=== PATIENT | female | born 1980 | race Caucasian/White ===

== ENCOUNTER 2021-11-22 07:56 | Outpatient (CLI) | payer BC, SELFPAY ==
--- NOTE | ~2021-11-22 | MM_ITS ---
EXAMINATION: MM scrn aretha implant BI w linden HISTORY: Screening mammogram TECHNIQUE: Craniocaudal and mediolateral oblique 3-D tomosynthesis images with implant displacement a nd synthetic 2-D images were generated. Craniocaudal and mediolateral oblique views of the breasts wi thout implant displacement were obtained using full field digital mammography. CAD analysis was submi tted and interpreted. COMPARISON: No prior mammogram is available for comparison at this institution. BREAST PARENCHYMAL COMPOSITION: The breasts are heterogeneously dense, which may obscure small masses . FINDINGS: There is no evidence of suspicious mass, calcification, or architectural distortion to sugg est malignancy in either breast. There has been no suspicious interval change. IMPRESSION: 1. No mammographic evidence of malignancy. 2. Recommend routine screening mammography in one year. BI-RADS Category 1: Negative Reviewed, dictated and finalized at location A. ARE DIRECTOR
== END 2021-11-22 07:57 | disposition home or self-care (01) ==
LOC: ANHIMG 07:58
PROVIDERS: PCP Internal Medicine; Visit Provider Student in an Organized Health Care Education/Training Program
DX: Z12.31 Encounter for screening mammogram for malignant neoplasm of breast (principal)
CPT/HCPCS: 77063; 77067

== ENCOUNTER 2025-06-10 14:13 | Outpatient (CLI) | payer OTHER, SELFPAY ==
--- NOTE | ~2025-06-10 | MM_ITS ---
EXAMINATION: MM scrn aretha implant BI w linden HISTORY: Screening mammogram TECHNIQUE: Craniocaudal and mediolateral oblique 3-D tomosynthesis images with implant displacement a nd synthetic 2-D images were generated. Craniocaudal and mediolateral oblique views of the breasts wi thout implant displacement were obtained using full field digital mammography. CAD analysis was submi tted and interpreted. COMPARISON: 11/22/2021 BREAST PARENCHYMAL COMPOSITION: Dense: The breasts are heterogeneously dense, which may obscure small masses FINDINGS: There is a new mass in the lower outer quadrant of the left breast. The right breast is sta ble without evidence for malignancy. IMPRESSION: 1. New left breast mass, lower outer quadrant. 2. Additional mammographic views and possible breast ultrasound are recommended. BI-RADS Category 0: Incomplete: Needs additional imaging evaluation. Reviewed, dictated and finalized at location B. IMPRESSION: 1. New left breast mass, lower outer quadrant. 2. Additional mammographic views and possible breast ultrasound are recommended . BI-RADS Category 0: Incomplete: Needs additional imaging evaluation.
--- OUTSIDE RECORDS SUMMARY | 2025-06-10 14:30 | XMS_ITS | Continuity of Care Document ---
Author Organization [facility] Address [address] [place] [address] Phone Care Team Providers Care Bulk Picker Name Role Phone Mcknight OD, Jase Unavailable Unavailable Advance Directives Directive Yes / No Effective Date File Name No Information Encounters Encounter Description Practice Location Reason(s) For Visit Diagnoses Date Provider Providers Copied on Encounter [facility], [address], [place], [place], [id number], [place] tel:[phone] [address] [facility] [place] No Information 1-200 5 Mcknight OD Jase. [address] [place] , [address], [place], [address], [place]. tel:[phone] Family History Family Member Type Diagnosis Age At Onset No Information Payers Payer name Insurance type Covered republican ID Authoriza tion(s) No Information Social History Type Description Quantity Date Captured Comments Sex Female Smoking Status No Information Chief Complaint And Reason For Visit No Information Reason For Referral Reason For Referral No Information History Of Present Illness Encounter Date Complaint History Of Prese nt Illness No Information Functional Status Date Functional Assessmen t No Information Instructions Date Instruction Additional Infor mation No Information Assessments Type Assessment Date No Information Patient Care Teams Name Effective Dates (start - stop) Status Members No Information
--- OUTSIDE RECORDS SUMMARY | 2025-06-10 14:30 | XMS_ITS | Clinical Summary ---
Author Organization [facility] [employer] Address [address] [place] [address] Care Team Providers Care Financial Reporting Director Name Role Phone Sotero Marks MD Primary Care Provider [phone] Source Comments [facility] [employer],non-owned Affiliates and Associated Physician Practices is amultiple site organization consisting of ambulatory clinics and hospital sitesin [place], [place]. This disclosure is being madepursuant to the Care Everywhere program and may not contain all information available regarding this patient. Last updated 18.[facility] [employer] Allergies No known active allergies Medications * Be aware that medications may not be up to date on this document. Alwaysverify current medications with the patient. spironolactone (ALDACTONE) 100 MG tablet Take 100 mg by mouth once daily Active omeprazole (PRILOSEC) 40 MG capsule Take 40 mg by mouth daily before breakfast Active vitamin E (TOCOPHERYL) 100 UNIT capsule Take by mouth once daily Active fluticasone propionate (FLONASE) 50 MCG/ACT nasal spray [place] 2 sprays into each nostril once daily 16 g 0 Active Social History Tobacco Use Types Packs/Day Years Used Date Smoking Tobacco: Never Smokeless Tobacco: Never Comments No Sex and Gender Information Value Date Recorded Sex Assigned at Not on file Legal Sex Female 4:07 AM [employer] Gender Identity Not on file Sexual Orientation Not on file Last Filed Vital Signs Vital Sign Reading Time Taken Comments Blood Pressure 108/70 06/23/2020 9:04 AM CDT Pulse 89 06/23/2020 9:04 AM CDT Temperature 37.1 C (98.7 F) 06/23/2020 9:04 AM CDT Respiratory Rate 18 06/23/2020 9:04 AM CDT Oxygen Saturation 98% 06/23/2020 9:04 AM CDT Inhaled Oxygen Concentration - - Weight 59 kg (130 lb) 06/23/2020 9:04 AM CDT Height 170.2 cm (5' 7) 06/23/2020 9:04 AM CDT Body Mass Index 20.36 06/23/2020 9:04 AM CDT Plan of Treatment Health Maintenance Due Date Last Done Comments LIPID TESTING 1980 MAMMOGRAM 1980 HIV SCREENING 1995 HEPATITIS C SCREENING 11/25/1998 DTAP/TDAP/TD VACCINES (1 - Tdap) 1999 HEPATITIS B VACCINE (1 of 3 - 19+ 3-dose series) 1999 HPV VACCINE (1 - 3-dose SCDM series) 2007 COVID-19 VACCINE ( - 2023-2 5 season) 2024 DEPRESSION SCREENING 11/25/2024 INFLUENZA VACCINE (#1) 2025 08/12/2018 ZOSTER VACCINE (1 of 2) 2030 HIB VACCINE Aged Out No longer eligi ble based on patient's age to complete this topic MENINGOCOCCAL (Group B) VACC INE SHARED DECISION-MAKING Aged Out No longer eligibl e based on patient's age to complete this topic MENINGOCOCCAL GROUPS A/C/Y/W VACCINE Aged Out No longer eligible b ased on patient's age to complete this topic PNEUMOCOCCAL VACCINE Aged Out No long er eligible based on patient's age to complete this topic Insurance [facility] Care Teams Financial Reporting Director Relationship Specialty Start Date End Date Sotero Marks MD PCP - General Internal Medicine 11/15/16
--- OUTSIDE RECORDS SUMMARY | 2025-06-10 14:30 | XMS_ITS | Data Portability ---
Author Organization [facility] [employer], Main Office Address [address] [place] [address] Assessment Encounter Date Assessment Date Assessment LastModified by Organization Details LastModified Time 03/20/2023 03/20/2023 Will try some Ketoralac 10 mg b.i.d. p.r.n. for pain tretoin 0.05% PPI for GERD can tolerate H2 lela Follow-up 6 months Had blood work done recently she will get us copies Not available 03/20/2023 10:43:30 06/21/2023 06/21/2023 She has acute on chronic back pain MRI lumbar spine she is using some Ketoralac sparingly tizanidine 4 mg b.i.d. p.r.n. set up with physical therapy see me after PT done [id number] Not available 06/21/2023 21:22:05 Plan of Treatment Reminders Order Date Submit Date Provider Last Modified By Organization Details Last Modified Time Details Appointments None recorded. Lab None recorded. Referral None recorded. Procedures None recorded. Surgeries None recorded. Imaging MRI, lumbar spine, w/o contrast 2022 023 [facility] ([facility]), [address] [place], [address], 4 11:09:59 Medication Orders tizanidine 4 mg tablet 2022 023 [email or web address] [facility] #[id number], [address] [facility], [place], [place], [id number], 3 14:25:48 tretinoin 0.05 % topical cream 2022 023 [facility] #[id number], [address], [place], [place], [id number], 11:19:38 Patient TargetsNo targets recorded. Patient InstructionsNo instructions recorded. Reason for Referral None Reported. Results Created Date Observation Date Name Description Value Unit Range Abnormal Flag Note LastModifiedBy Organization Detail LastModifiedTime 02/24/20 22 02/23/2022 LIPID PANEL cholesterol 182 mg/dL 140-19 9 [facility] F NSUS RECOM MENDA TION FOR MICHELLE STERO L: ADULT CHILD LOW RISK: <200 <170 BORDE RLINE : <200- 239 ----- HIGH RISK: >240 >200 Not Available [facility] (Lab) [address] [place], [address], 02/23/2022 17:26:54 02/24/20 22 02/23/2022 LIPID PANEL triglyceride s 103 mg/dL 0-150 [facility] LUIS F NSUS REPOR T RECOM MENDA TION FOR TRIGL YCERI MURIEL: ADULT CHILD LOW RISK: <150 ----- BODER LINE: 150-1 99 ----- HIGH RISK: >200 ----- Not Available [facility] (Lab) [address] [place], [address], 02/23/2022 17:26:54 02/24/20 22 02/23/2022 LIPID PANEL HDL cholesterol 47 mg/dL 40- Not Available [facility] (Lab) [address] [place], [address], 02/23/2022 17:26:54 02/24/20 22 02/23/2022 LIPID PANEL LDL cholesterol, calculated 114 mg/dL 0-130 NIH LUIS F NSUS REPOR T RECOM MENDA TIONS FOR LDL: ADULT CHILD LOW RISK <130 <110 (OPTI MAL LDL) <100 ----- BORDE RLINE : 130-1 59 ----- HIGH RISK: >160 >130 A TRIGL YCERI DE RESUL T >400 INVAL IDATE S THE CALCU LATIO N FOR LDL FRACT IONAT ION - THE LDL RESUL T WILL NOT BE REPOR MJ. Not Available [facility] (Lab) [address] [place], [address], 02/23/2022 17:26:54 02/24/20 22 02/23/2022 COMPR EHENS ISI METAB OLIC PANEL sodium 138 mmol/ L 137-14 5 Not Available [facility] (Lab) [address] [place], [address], 02/23/2022 17:26:48 02/24/20 22 02/23/2022 COMPR EHENS ISI METAB OLIC PANEL potassium 4.4 mmol/ L 3.5-5. 1 Not Available [facility] (Lab) [address] [place], [address], 02/23/2022 17:26:48 02/24/20 22 02/23/2022 COMPR EHENS ISI METAB OLIC PANEL chloride 103 mmol/ L 98-107 Not Available [facility] (Lab) [address] [place], [address], 02/23/2022 17:26:48 02/24/20 22 02/23/2022 COMPR EHENS ISI METAB OLIC PANEL carbon dioxide 27 mmol/ L 22-30 Not Available [facility] (Lab) [address] [place], [address], 02/23/2022 17:26:48 02/24/20 22 02/23/2022 COMPR EHENS ISI METAB OLIC PANEL agap 12.4 mmol/ L 14-22 low Not Available [facility] (Lab) [address] [place], [address], 02/23/2022 17:26:48 02/24/20 22 02/23/2022 COMPR EHENS ISI METAB OLIC PANEL glucose 86 mg/dL 70-99 Not Available [facility] (Lab) [address] [place], [address], 02/23/2022 17:26:48 02/24/20 22 02/23/2022 COMPR EHENS ISI METAB OLIC PANEL BUN 13 mg/dL 8-19 Not Available [facility] (Lab) [address] [place], [address], 02/23/2022 17:26:48 02/24/20 22 02/23/2022 COMPR EHENS ISI METAB OLIC PANEL creatinine 0.77 mg/dL 0.66-1 .25 Not Available [facility] (Lab) [address] [facility], [place], [address], 02/23/2022 17:26:48 02/24/20 22 02/23/2022 COMPR EHENS ISI METAB OLIC PANEL GFR >60 Refer ence Range : [place] [facility] GFR Healt hy Adult : >60 mL/mi n/1.7 3 m2 Chron ic Kidne y Disea se: 15-60 mL/mi n/1.7 3 m2 Kidne y Failu re: <15/m L/min /1.73 m2 www.n iddk. nih.g ov The MDRD study equat ion has not been valid ated in child ney <18 years of age; pregn ant women ; the elder ly >85 years of age; or in some racia l or ethni c subgr oups, such as [facility] nics. Outsi de the valid ated kayla eters , estim ated GFR is less accur ate, requi ring clini brian judgm ent on a case- by-ca se basis . Clini brian inter preta tion for other races and ages must be made by the clini carter. The MDRD study equat ion has not been valid ated for the evalu ation of serum creat inine relat ed to nutri liliana l statu s or medic ation usage . For perso ns <18 years of age, a pedia tric GFR calcu lator is avail able on the [facility] websi te: https ://sharifa patrick.o rg/pr ofess ional s/kdo qi/gf r_cal culat or Not Available [facility] (Lab) [address] [place], [address], 02/23/2022 17:26:48 02/24/20 22 02/23/2022 COMPR EHENS ISI METAB OLIC PANEL alkaline phosphatase 50 U/L 38-126 Not Available [facility] (Lab) [address] [facility] [place], [address], 02/23/2022 17:26:48 02/24/20 22 02/23/2022 COMPR EHENS ISI METAB OLIC PANEL alanine aminotransfe rase 41 U/L 0-35 high Not Available [facility] (Lab) [address] [place], [address], 02/23/2022 17:26:48 02/24/20 22 02/23/2022 COMPR EHENS ISI METAB OLIC PANEL aspartate aminotransfe rase 127 U/L 15-37 high Not Available [facility] (Lab) [address] [place], [address], 02/23/2022 17:26:48 02/24/20 22 02/23/2022 COMPR EHENS ISI METAB OLIC PANEL bilirubin, total 0.60 mg/dL 0.20-1 .30 Not Available [facility] (Lab) [address] [place], [address], 02/23/2022 17:26:48 02/24/20 22 02/23/2022 COMPR EHENS ISI METAB OLIC PANEL calcium 9.3 mg/dL 8.4-10 .2 Not Available [facility] (Lab) [address] [place], [address], 02/23/2022 17:26:48 02/24/20 22 02/23/2022 COMPR EHENS ISI METAB OLIC PANEL total protein 7.2 g/dL 6.3-8. 2 Not Available [facility] (Lab) [address] [place], [address], 02/23/2022 17:26:48 02/24/20 22 02/23/2022 COMPR EHENS ISI METAB OLIC PANEL albumin 4.3 g/dL 3.4-5. 0 Not Available [facility] (Lab) [address] [place], [address], 02/23/2022 17:26:48 02/24/20 22 02/23/2022 COMPR EHENS ISI METAB OLIC PANEL globulin 2.9 g/dL 2.6-4. 2 Not Available [facility] (Lab) [address] [place], [address], 02/23/2022 17:26:48 02/24/20 22 02/23/2022 COMPR EHENS ISI METAB OLIC PANEL A/G ratio 1.5 ratio 1.0-2. 0 Not Available [facility] (Lab) [address] [place], [address], 02/23/2022 17:26:48 02/24/20 22 02/23/2022 CORTI TIA, TOTAL ab 10.8 ug/dL CORTI TIA RESUL T COMME NT: Refer ence Range : Befor e 10 a.m. Speci men: 4.5-2 2.7 Refer ence Range : After 5 p.m. Speci men: 1.7-[address] ease inter pret above resul ts accor dingl y Not Available [facility] (Lab) [address] [place], [address], 02/23/2022 14:59:42 02/24/20 22 02/23/2022 TSH thyroid-stim ulating hormone 1.910 uIU/m L 0.465- 4.680 Not Available [facility] (Lab) [address] [place], [address], 02/23/2022 14:59:37 02/24/20 22 02/23/2022 T4 FREE free T4 1.17 NG/dL 0.78-2 .19 Not Available [facility] (Lab) [address] [facility] [place], [address], 02/23/2022 14:55:21 02/24/20 22 02/23/2022 T3 FREE free T3 3.7 pg/mL 2.77-5 .27 Not Available [facility] (Lab) [address] [place], [address], 02/23/2022 14:55:20 02/24/20 22 02/23/2022 CBC/C OMPLE TE BLD COUNT W/DIF F white blood cells 5.4 x10'3 /uL 4.2-10 .8 Not Available [facility] (Lab) [address] [place], [address], 02/23/2022 13:19:29 02/24/20 22 02/23/2022 CBC/C OMPLE TE BLD COUNT W/DIF F red blood cells 4.81 x10'6 /uL 3.80-5 .20 Not Available [facility] (Lab) [address] [place], [address], 02/23/2022 13:19:29 02/24/20 22 02/23/2022 CBC/C OMPLE TE BLD COUNT W/DIF F hemoglobin 14.3 g/dL 12.0-1 5.6 Not Available [facility] (Lab) [address] [place], [address], 02/23/2022 13:19:29 02/24/20 22 02/23/2022 CBC/C OMPLE TE BLD COUNT W/DIF F hematocrit 44.2 % 35.7-4 5.7 Not Available [facility] (Lab) [address] [place], [address], 02/23/2022 13:19:29 02/24/20 22 02/23/2022 CBC/C OMPLE TE BLD COUNT W/DIF F mean red cell volume 91.9 fL 82.0-9 9.0 Not Available [facility] (Lab) [address] [facility] [place], [address], 02/23/2022 13:19:29 02/24/20 22 02/23/2022 CBC/C OMPLE TE BLD COUNT W/DIF F mean red cell hemoglobin 29.7 pg 27.0-3 3.0 Not Available [facility] (Lab) [address] [place], [address], 02/23/2022 13:19:29 02/24/20 22 02/23/2022 CBC/C OMPLE TE BLD COUNT W/DIF F mean RBC HGB concentratio n 32.4 g/dL 31.0-3 6.0 Not Available [facility] (Lab) [address] [place], [address], 02/23/2022 13:19:29 02/24/20 22 02/23/2022 CBC/C OMPLE TE BLD COUNT W/DIF F red cell distribution width 13.6 % 11.8-1 5.5 Not Available [facility] (Lab) [address] [place], [address], 02/23/2022 13:19:29 02/24/20 22 02/23/2022 CBC/C OMPLE TE BLD COUNT W/DIF F platelets 257 x10'3 /uL 150-40 0 Not Available [facility] (Lab) [address] [place], [address], 02/23/2022 13:19:29 02/24/20 22 02/23/2022 CBC/C OMPLE TE BLD COUNT W/DIF F mean platelet volume 10.5 fL 9.0-12 .4 Not Available [facility] (Lab) [address] [place], [address], 02/23/2022 13:19:29 02/24/20 22 02/23/2022 CBC/C OMPLE TE BLD COUNT W/DIF F neutrophils 61.1 % 39.0-7 2.0 Not Available [facility] (Lab) [address] [place], [address], 02/23/2022 13:19:29 02/24/20 22 02/23/2022 CBC/C OMPLE TE BLD COUNT W/DIF F lymphocytes 29.7 % 16.0-4 7.0 Not Available [facility] (Lab) [address] [place], [address], 02/23/2022 13:19:29 02/24/20 22 02/23/2022 CBC/C OMPLE TE BLD COUNT W/DIF F monocytes 6.9 % 5.0-12 .0 Not Available [facility] (Lab) [address] [place], [address], 02/23/2022 13:19:29 02/24/20 22 02/23/2022 CBC/C OMPLE TE BLD COUNT W/DIF F eosinophils 1.5 % 1.0-7. 0 Not Available [facility] (Lab) [address] [place], [address], 02/23/2022 13:19:29 02/24/20 22 02/23/2022 CBC/C OMPLE TE BLD COUNT W/DIF F basophils 0.6 % 0.0-2. 0 Not Available [facility] (Lab) [address] [place], [address], 02/23/2022 13:19:29 02/24/2002/23/2022 CBC/C OMPLE TE BLD COUNT W/DIF F immature granulocytes 0.2 % 0.00-0 .50 Not Available [facility] (Lab) [address] [place], [address], 02/23/2022 13:19:29 02/24/20 22 02/23/2022 CBC/C OMPLE TE BLD COUNT W/DIF F neutrophils, absolute count 3.28 x10'3 /uL 1.5-8. 0 Not Available [facility] (Lab) [address] [place], [address], 02/23/2022 13:19:29 02/24/20 22 02/23/2022 CBC/C OMPLE TE BLD COUNT W/DIF F lymphocytes, absolute count 1.59 x10'3 /uL 1.07-3 .43 Not Available [facility] (Lab) [address] [place], [address], 02/23/2022 13:19:29 02/24/20 22 02/23/2022 CBC/C OMPLE TE BLD COUNT W/DIF F monocytes, absolute count 0.37 x10'3 /uL 0.29-0 .99 Not Available [facility] (Lab) [address] [place], [address], 02/23/2022 13:19:29 02/24/20 22 02/23/2022 CBC/C OMPLE TE BLD COUNT W/DIF F eosinophils, absolute count 0.08 x10'3 /uL 0.02-0 .53 Not Available [facility] (Lab) [address] [place], [address], 02/23/2022 13:19:29 02/24/20 22 02/23/2022 CBC/C OMPLE TE BLD COUNT W/DIF F basophils, absolute count 0.03 x10'3 /uL 0.01-0 .08 Not Available [facility] (Lab) [address] [facility] [place], [address], 02/23/2022 13:19:29 02/24/20 22 02/23/2022 CBC/C OMPLE TE BLD COUNT W/DIF F immature granulocytes ,absolute 0.01 x10'3 /uL 0.00-0 .05 Not Available [facility] (Lab) [address] [place], [address], 02/23/2022 13:19:29 02/24/20 22 02/23/2022 CBC/C OMPLE TE BLD COUNT W/DIF F nucleated red blood cells 0.0 % -0 Not Available [facility] (Lab) [address] [place], [address], 02/23/2022 13:19:29 02/24/20 22 02/23/2022 CBC/C OMPLE TE BLD COUNT W/DIF F NRBC# 0.00 x10'3 /uL Not Available [facility] (Lab) [address] [place], [address], 02/23/2022 13:19:29 11/22/20 21 11/22/2021 MAMMO , scree tyson, digit al, bilat eral No observ ation record ed. [id number] [facility] (Imaging) [address] [place] [address] [address], [place], [address], 01/23/2023 05:01:07 Result Notes None recorded. Problems Name Problem SNOMED Code Status Onset Date Resolution Date Notes Provider Name and Address Organization Details Recorded Time Has a sore throat 270052635 Active Not Available [facility] 3 04:49:28 Pain in thoracic spine 948617729 Active Not Available [facility] 3 04:49:28 Malaise and fatigue 165536924 Active Not Available [facility] 3 04:49:28 Premenstrual tension syndrome 03441216 Active Not Available [facility] 3 04:49:29 Gastroesophag eal reflux disease 578854356 Active 2018 Not Available [facility] 3 04:49:28 Headache 92739223 Active 2020 Not Available [facility] 3 04:49:28 Arthritis 6941629 Active 2020 Not Available [facility] 3 04:49:28 Onychomycosis of toenails 703654382 Active 2020 Not Available [facility] 3 04:49:28 Fatigue 29333651 Active 2021 Not Available [facility] 3 04:49:29 Dysuria 36254272 Active 2021 Not Available [facility] 3 04:49:28 Chronic dermatitis 23260200 Active 2021 Not Available [facility] 3 04:49:28 Acute urinary tract infection 197058477 Active 2021 Not Available [facility] 3 04:49:28 Upper respiratory infection 97364339 Active 2022 Not Available [facility] 3 04:49:29 Acne 93033701 Active 2022 NICOLA Hui, [facility] 3 10:30:38 Low back pain 671965088 Active 2022 NICOLA Hui, [facility] 3 10:34:35 Problem Notes None recorded. Procedures Surgical History Date Name Laterality Status Provider Name and Address Organization Details Recorded Time [place] [facility] completed Not Available [facility] 01/23/2023 04:41:57 augmentation mammoplasty completed Not Available [facility] 01/23/2023 04:41:57 Imaging Results None recorded. Procedure Notes None recorded. Medical Equipment None Reported. Allergies No known drug allergies Medications Name Sig Start Date Stop Date Status Note LastModified by Organization Details LastModified Time amoxicillin 500 mg capsule Take 1 capsule every 8 hours by oral route for 7 days. active Not Available Not Available No t Available prednisone 10 mg tablet 08/17 completed Not Available Not Available Not Available clindamycin HCl 300 mg capsule Take 1 capsule 3 times a day by oral route for 10 days. active Not Available Not Available No t Available azithromyci n 250 mg tablet TAKE 2 TABLETS BY MOUTH FOR 1 DAY THEN TAKE 1 TABLET BY MOUTH DAILY FOR 4 DAYS 03/20 completed Not Available Not Available Not Available tizanidine 4 mg tablet TAKE 1 TABLET BY MOUTH EVERY NIGHT AT BEDTIME NEEDED FOR BACK SPASMS active Not Available Not Available No t Available fluconazole 150 mg tablet 03/14 completed Not Available Not Available Not Available hydrocodone 5 mg-acetamin ophen 325 mg tablet 01/27 completed Not Available Not Available Not Available tretinoin 0.025 % topical cream APPLY TOPICALLY TO THE AFFECTED AREA EVERY DAY AT BEDTIME 06/21 completed Not Available Not Available Not Available minocycline 100 mg capsule 11/09 completed Not Available Not Available Not Available meloxicam 15 mg tablet active Not Available Not Available Not Available metronidazo le 0.75 % (37.5 mg/5 gram) vaginal gel INSERT 1 APPLICATO RFUL VAGINALLY EVERY DAY AT BEDTIME FOR 5 DAYS 03/20 completed Not Available Not Available Not Available spironolact one 100 mg tablet TAKE 1 TABLET BY MOUTH EVERY DAY 2023 active Not Available Not Available Not Avai lable clindamycin HCl 150 mg capsule 01/27 completed Not Available Not Available Not Available penicillin V potassium 500 mg tablet 01/27 completed Not Available Not Available Not Available metronidazo le 500 mg tablet TAKE 1 TABLET BY MOUTH EVERY 12 HOURS 03/14 completed Not Available Not Available Not Available sulfacetami de sodium (acne) 10 % lotion (suspension ) 11/09 completed Not Available Not Available Not Available ciprofloxac in 250 mg tablet Take 1 tablet twice a day by oral route for 7 days. 01/27 completed Not Available Not Available Not Available tretinoin 0.05 % topical cream APPLY TOPICALLY TO THE AFFECTED AREA EVERY DAY AT BEDTIME active Not Available Not Available No t Available sulfamethox azole 800 mg-trimetho prim 160 mg tablet 11/09 completed Not Available Not Available Not Available omeprazole 40 mg capsule,del ayed release TAKE 1 CAPSULE BY MOUTH EVERY DAY 2023 active Not Available Not Available Not Avai lable ketorolac 10 mg tablet TAKE 1 TABLET BY MOUTH TWICE DAILY NEEDED active Not Available Not Available No t Available amoxicillin 875 mg tablet 11/09 completed Not Available Not Available Not Available Zoloft 50 mg tablet Take 1 tablet every day by oral route as directed for 30 days. 01/24 completed Not Available Not Available Not Available cephalexin 500 mg capsule 01/27 completed Not Available Not Available Not Available cyanocobala min (vit B-12) 1,000 mcg/mL injection solution Inject 1 mL every month by intramusc ular route. 06/08 completed Not Available Not Available Not Available clotrimazol e-betametha sone 1 %-0.05 % topical cream 01/27 completed Not Available Not Available Not Available omeprazole 20 mg capsule,del ayed release Take 1 capsule every day by oral route. 05/19 completed Not Available Not Available Not Available ibuprofen 600 mg tablet 01/27 completed Not Available Not Available Not Available ketoconazol e 2 % topical cream active Not Available Not Available Not Available fluticasone propionate 50 mcg/actuati on nasal spray,suspe nsion SHAKE LQ AND U 2 SPRAYS IEN QD 08/17 completed Not Available Not Available Not Available omeprazole ER 40 mg capsule,ext ended release Take by oral route. 08/17 completed Not Available Not Available Not Available progesteron e micronized 100 mg capsule TAKE 1 CAPSULE BY MOUTH AT BEDTIME 06/21 completed Not Available Not Available Not Available amoxicillin 875 mg-potassiu m clavulanate 125 mg tablet TK 1 T PO BID WITH THE MORNING AND SANDOVAL MEAL FOR 7 DAYS 11/09 completed Not Available Not Available Not Available amoxicillin 500 mg-potassiu m clavulanate 125 mg tablet 01/27 completed Not Available Not Available Not Available hydroxyzine pamoate 25 mg capsule 01/27 completed Not Available Not Available Not Available clindamycin 1 % lotion 01/27 completed Not Available Not Available Not Available Wellbutrin XL 150 mg 24 hr tablet, extended release Take 1 tablet every day by oral route. 11/09 completed Not Available Not Available Not Available nitrofurant oin monohydrate /macrocryst als 100 mg capsule TAKE 1 CAPSULE BY MOUTH EVERY 12 HOURS FOR 7 DAYS 09/17 completed Not Available Not Available Not Available melatonin active Not Available Not Suri ilable Not Available Vitamin D 08/17 completed Not Available Not Available Not Available multivitami n 2021 active Not Available Not Available Not Avai lable Aczone 5 % topical gel 11/09 completed Not Available Not Available Not Available vitamin E (dl, acetate) 180 mg (400 unit) capsule Take by oral route. 08/17 completed Not Available Not Available Not Available Vitamin D3 50 mcg (2,000 unit) capsule Take by oral route. 08/17 completed Not Available Not Available Not Available Estarylla 0.25 mg-0.035 mg tablet 04/15 completed Not Available Not Available Not Available Addyi 100 mg tablet TAKE 1 TABLET BY MOUTH EVERY NIGHT AT BEDTIME 03/14 completed Not Available Not Available Not Available Aczone 7.5 % topical gel with pump 11/09 completed Not Available Not Available Not Available tretinoin 0.025 %-hyalurona te sodium 0.5 %-niacinami de 4 % top cream apply to dermatiti s daily 09/17 completed Not Available Not Available Not Available Vitals Date Recorded Body mass index (BMI) Body height Heart rate Body temperature Body weight Systolic And Diastolic Provider Name and Address Organization Details Last Updated DateTime 2 20.8 kg/m2 170.18 cm 84 /min 97.9 [degF] 74006.7 9 g 122/70 mm[Hg] Not Available [facility] 3 04:45:13 Date Recorded Body height Body mass index (BMI) Body weight Body temperature Heart rate Systolic And Diastolic Provider Name and Address Organization Details Last Updated DateTime 3 170.18 cm 22.2 kg/m2 36891.1 2 g 97.8 [degF] 82 /min 120/84 mm[Hg] NICOLA Lucas [facility] [employer] [place] [facility] 3 09:59:27 Date Recorded Body height Body mass index (BMI) Body weight Body temperature Heart rate Systolic And Diastolic Provider Name and Address Organization Details Last Updated DateTime 3 170.18 cm 21.9 kg/m2 47027.9 3 g 97.7 [degF] 68 /min 110/72 mm[Hg] NICOLA Lucas [facility] [employer] [facility] 3 14:05:32 Date Recorded Body mass index (BMI) Body height Heart rate Body temperature Body weight Systolic And Diastolic Provider Name and Address Organization Details Last Updated DateTime 1 20.5 kg/m2 170.18 cm 72 /min 98.8 [degF] 34220.6 g 130/70 mm[Hg] Not Available [facility] 3 04:45:13 Date Recorded Body mass index (BMI) Body height Heart rate Body temperature Body weight Systolic And Diastolic Provider Name and Address Organization Details Last Updated DateTime 2 21.5 kg/m2 170.18 cm 79 /min 98.6 [degF] 87724.1 5 g 120/76 mm[Hg] Not Available [facility] 3 04:45:13 Social History Question Answer Notes LastModified by Organizat ion Details LastModified Time Tobacco Smoking Status Never Smoker Not Available [facility] 01/23/2023 04:20:12 Do You Have An Advance Directive? No [id number] Information not available 01/23/2023 What Is Your Level Of Caffeine Consumption? Occasional [id number] Information not available 01/23/2023 How Much Tobacco Do You Chew? None [id number] Information not available 01/23/2023 In The 14 Days Before Symptom Onset, Have You Had Close Contact With A Laboratory-confi rmed COVID-19 While That Case Was Ill? No [id number] Information not available 01/23/2023 In The 14 Days Before Symptom Onset, Have You Had Close Contact With A Person Who Is Under Investigation For COVID-19 While That Person Was Ill? No [id number] Information not available 01/23/2023 What Type Of Diet Are You Following? REGULAR [id number] Information not available 01/23/2023 Which Illicit Or Recreational Drugs Have You Used? None [id number] Information not available 01/23/2023 What Is The Highest Grade Or Level Of School You Have Completed Or The Highest Degree You Have Received? [id number] Information not available 01/23/2023 Have There Been Any Changes To Your Family Or Social Situation? No [id number] Information not available 01/23/2023 What Is The Fluoride Status Of Your Home? Unknown [id number] Information not available 01/23/2023 Are There Any Guns Present In Your Home? Yes MIGRATION.[id number] Information not available 01/23/2023 Do You Use Insect Repellent Routinely? No MIGRATION.42441 76713 Information not available 01/23/2023 Where Do You Live? [place] MIGRATION.79403 76009 Information not available 01/23/2023 Do You Have A Medical Power Of Helmet Hat Brim Cutter? No MIGRATION.10872 00250 Information not available 01/23/2023 What Was The Date Of Your Most Recent Tobacco Screening? 06/21/2023 [email or web address] Information not available 06/21/2023 Have You Ever Been Counseled For Unhealthy Alcohol Use? No MIGRATION.75837 27550 Information not available 01/23/2023 Do You Have Any Pets? Yes MIGRATION.70073 88225 Information not available 01/23/2023 What Is Your Relationship Status? MIGRATION.19520 47304 Information not available 01/23/2023 Do You Use Your Seat Belt Or Car Seat Routinely? Yes MIGRATION.64049 51262 Information not available 01/23/2023 Do You Have Smoke And Carbon Monoxide Detectors In Your Home? Yes MIGRATION.21357 42815 Information not available 01/23/2023 Are You Passively Exposed To Smoke? No MIGRATION.23946 56803 Information not available 01/23/2023 Are There Any Smokers In Your House? No MIGRATION.33242 22868 Information not available 01/23/2023 How Much Tobacco Do You Smoke? No MIGRATION.51406 66105 Information not available 01/23/2023 What Types Of Sporting Activities Do You Participate In? None MIGRATION.01227 84145 Information not available 01/23/2023 Do You Use Sunscreen Routinely? Yes MIGRATION.86412 99758 Information not available 01/23/2023 Has Tobacco Cessation Counseling Been Provided? No Not Needed-ne ciarra Smoked MIGRATION.53152 05655 Information not available 01/23/2023 How Many Years Have You Smoked Tobacco? 0 MIGRATION.09964 90951 Information not available 01/23/2023 Have You Recently Traveled Abroad? No MIGRATION.20866 02023 Information not available 01/23/2023 Do You Have Any Dietary Restrictions? No MIGRATION.58275 87172 Information not available 01/23/2023 Sex: Female Functional Status Question Answer Note LastModified by Organizat ion Details LastModified Time Do you use any illicit or recreational drugs? No MIGRATION.[id number] 026 Information not available 01/23/2023 Do you or have you ever used any other forms of tobacco or nicotine? No MIGRATION.8121708 026 Information not available 01/23/2023 What is your level of alcohol consumption? Occasional MIGRATION.8410143 026 Information not available 01/23/2023 What is your occupation? nurse MIGRATION.9050606 026 Information not available 01/23/2023 What is your exercise level? Moderate MIGRATION.3934189 026 Information not available 01/23/2023 Mental Status Question Answer Note LastModified by Organizat ion Details LastModified Time Do you feel stressed (tense, restless, nervous, or anxious, or unable to sleep at night)? [id number] MIGRATION.[id number] Information not available 01/23/2023 Family History Relationship Description Onset Age of this Age Resolved Age Notes LastModified by Organization Details LastModified Time Father Heart disease MIGRATION.[id number] Not available 01/23/2023 04:42:00 Father Diabetes mellitus MIGRATION.324 [id number] Not available 01/23/2023 04:42:00 Father Malignant neoplasm of prostate MIGRATION.365 [id number] Not available 01/23/2023 04:42:00 Mother Diabetes mellitus MIGRATION.368 [id number] Not available 01/23/2023 04:42:00 Father Dementia Not availa ble 03/20/2023 09:57:28 Medical History Condition Response NERVE DISEASE N BLINDNESS N RHEUMATIC FEVER N KIDNEY STONES N BLADDER PROBLEMS N MRSA N OTHER # 1 N POLIO N LUNG DISEASE/DISORDER N RADIATION / CHEMOTHERAPY N COPD N Other # 2 N BLOOD DISEASES N EAR OR HEARING PROBLEMS N MUMPS N BOWEL PROBLEMS N DEPRESSION (INCLUDING POST ) N STROKE/TIA N ULCERS N BENIGN PROSTATIC HYPERPLASIA N MEASLES N MYOCARDIAL INFARCTION N OBESITY N GERD/NAUSEA Y ANEURYSM N URINARY/BLADDER/KIDNEY PROBLEMS N CORONARY ARTERY DISEASE (CAD) N ADDICTION CONCERNS N ENDOMETRIOSIS N Impotence N USE OF BLOOD THINNERS N SKIN PROBLEMS Y GASTROINTESTINAL DISORDER N PERIPHERAL VASCULAR DISEASE N MUSCLE,JOINT OR BONE PROBLEMS N GASTROINTESTINAL BLEEDING N BLOOD CLOTS N ASTHMA N CATARACTS N ERECTILE DYSFUNCTION N VARICOSITIES N GI PROBLEMS N Low Testosterone N INFERTILITY N AIDS/HIV N CHEMOTHERAPY / RADIATION N LIVER DISEASE N MALE HYPOGONADISM N HYPERTENSION N Deficiency N TOURETTE'S N ANXIETY DISORDER N BLOOD TRANSFUSION N ANEMIA/BLOOD DISORDER N CHRONIC EAR INFECTIONS N BRONCHITIS N TUBERCULOSIS N GLAUCOMA N FOOT PROBLEM N DIVERTICULITIS N SLEEP APNEA N CHICKENPOX N INFECTIOUS DISEASE N HEART ARRHYTHMIA N PROSTATE N INSOMNIA N HIGH CHOLESTEROL / HYPERLIPIDEMIA N HYPERTHYROIDISM N EYE PROBLEMS N EDEMA N CHRONIC PAIN SYNDROME N HYPOTHYROIDISM N CAROTID BLOCKAGE N CONSTIPATION N BACK / NECK PROBLEMS N HAVE YOU BEEN HOSPITALIZED OR SEEN IN [facility] IN THE PAST YEAR ? N ATHEROSCLEROSIS N BREAST PROBLEMS N DIALYSIS N ECZEMA N OSTEOPOROSIS N ARTHRITIS N APPENDICITIS N DIABETES, TYPE N BAD TEETH N ENT N HEARTBURN / REFLUX N AUTISM SPECTRUM DISORDER (ASD) N HEPATITIS / LIVER DISEASE N GOUT N SLEEP DISORDER N ALZHEIMER'S DISEASE N Brain Problems N HERPES N DEMENTIA N HEADACHES/MIGRAINES N SEIZURES/EPILEPSY N VASCULAR DISEASE N PACEMAKER N Blood Disorder N DIZZINESS N HEART DISEASE/HEART PROBLEMS N KIDNEY DISEASE N MULTIPLE SCLEROSIS N CARDIAC ARRHYTHMIA N CANCER: SPECIFY N ATRIAL FIBRILLATION N Gall Stones N PULMONARY EMBOLISM N AUTOIMMUNE DISEASE N Gynecological HistoryNo gynecological history recorded. Obstetrics History GPAL:G 0 P 0 0 0 0 Immunizations Vaccine Type Date Status Note Provider Nam e and Address Organization Details Recorded Time COVID-19, mRNA, LNP-S, PF, 100 mcg/0.5mL dose or 50 mcg/0.25mL dose 1 completed Not Available [facility] 01/23/2023 05:00:15 COVID-19, mRNA, LNP-S, PF, 100 mcg/0.5mL dose or 50 mcg/0.25mL dose 1 completed Not Available [facility] 01/23/2023 05:00:15 Influenza, split virus, quadrivalent, preservative 8 completed Not Available [facility] 01/23/2023 05:00:15 Past Encounters Encounter ID Performer Location Encounter Start Date Encounter Closed Date Diagnosis/Indication Diagnosis SNOMED-CT Code Diagnosis ICD10 Code Diagnosis Note [id number] Sotero Marks MD [facility] [facility] [place] [address] [facility] [address] [place] [address] 08/17/2021 00:00:00 08/27/2021 20:45:05 [id number] Sotero Marks MD [facility] [place] [address] [facility] [address] [place] [address] 03/14/2022 00:00:00 04/08/2022 19:11:39 [id number] Sotero Marks MD [facility] Internal Med [facility] [address] [facility], [facility] [address] [place] [address] 09/17/2022 00:00:00 09/18/2022 17:06:53 [id number] Sotero Marks MD [facility] Internal Med [facility] [address] [facility] [address] [place] [address] 03/20/2023 09:48:35 03/20/2023 10:31:50 Acne 35755017 L70.9 Gastroesop hageal reflux disease [id number] K21.9 Low back pain [id number] M54.50 [id number] Sotero Marks MD [facility] Internal Med [facility] [address] [facility] [address] [place] [address] 06/21/2023 13:56:55 06/21/2023 14:23:24 Low back pain [id number] M54.50 Health Concerns Section Related Observation LastModified by Organization Detai ls LastModified Time None Recorded Concern Status LastModified by Organization Details LastModified Time None Recorded Advance Directives Directive N: Payers Insurance Date Sequence Insurance Name Policy Number Policy Proctor Covered Member ID Proctor Member ID Guarantor Name 09/22/2023 1 [facility] [id number] Andrew Nichols [id number] Lulu Nichols 03/20/[address] [facility] [id number] Andrew Nichols [id number] Lulu Nichols Notes Date Note Type Note Provider Name and Address Organization Details Recorded Time 03/20/2023 text/html Her tretinoin working okayback pain comes and goesGERD stable Sotero Marks MD [address] [facility], [place], [address], [facility] 03/20/2023 10:43:55 06/21/2023 text/html Back pain off an d on for a year recently she was picking up some bird food and she started him lot of pains a local chiropractor her back popped got better now it is worse no radicular symptoms bending and twisting make it worse is on the left side and nothing radicular bowel or bladder no fever chills or constitutional symptoms pain is moderate Sotero Marks MD [address], [facility] [address], [place], [address], [place] [facility] 06/21/2023 21:22:21 OBGyn Episode No OBEpisode recorded.
--- OUTSIDE RECORDS SUMMARY | 2025-06-10 14:30 | XMS_ITS | Data Portability ---
Author Organization [facility] Julieta [facility] Address [address] [place] [address] Care Team Providers Care Cilnical Scientist Name Role Phone VIKTOR MARKS Primary Care Provider AUBREY ESTRADA Cash Poster Assessment Encounter Date Assessment Date Assessment LastModified by Organization Details LastModified Time 04/08/2024 04/08/2024 Her customer strategy manager does her Pap smears and orders her mammograms. Because she has been unsuccessful in multiple dietary strategies we will try to obtain a GLP-1 agent she has no history of cancer in the family of thyroid or anything to suggest multiple endocrine neoplasia side effects of those medicines and mechanism of action of been discussed blood work has been ordered I will see her back in 4 to 6 weeks after starting the GLP-1 if insurance approves it if it does not I will see her in 4 to 6 months.. Obtain old records [email or web address] Not available 04/09/2024 08:15:57 10/08/2024 10/08/2024 continue current therapy and follow up in 6 months. Low-fat diet [email or web address] Not available 11/19/2024 22:47:55 02/18/2025 02/18/2025 new onset headac he neuroimaging with some inflammatory markers CBC CMP further recommendations accordingly [email or web address] Not available 02/20/2025 16:37:20 Plan of Treatment Reminders Order Date Submit Date Provider Last Modified By Organization Details Last Modified Time Details Appointments None recorded. Lab inflammatio n panel, serum or plasma 2024 025 UPTON [facility], [address], [address] [address], [place], [address], 5 11:12:21 CBC w/ auto diff 2024 025 MEET [facility], [address], [address], [place], [address], 5 11:12:23 CMP, serum or plasma 2024 025 MEET Harden, [address], [address], [place], [address], 5 11:12:22 lipid panel, serum 2023 024 MEET Harden, [address], [address], [place], [address], 4 15:11:12 CMP, serum or plasma 2023 024 MEET Harden, [address], [address], [place], [address], 4 15:11:14 CBC w/ auto diff 2023 024 MEET Harden, [address], [address], [place], [address], 4 15:11:17 TSH, ultra-sensi tive, serum 2023 024 MEET Harden, [address], [address], [place], [address], 4 15:11:16 unlisted lab - T4, free 2023 024 MEET Harden, [address], [address], [place], [address], 4 15:11:13 T3, free, serum or plasma 2023 024 MEET Harden, [address], [address], [place], [address], 4 15:11:18 Referral None recorded. Procedures None recorded. Surgeries None recorded. Imaging MRI, brain, w/o contrast 2024 025 [facility] ([facility]), [address] [facility], [place], [address], 5 11:19:05 Medication Orders Zepbound 2.5 mg/0.5 mL subcutaneou s pen injector 2023 025 UPTON [id number], [address], [place], [place], [id number], 15:09:11 Patient TargetsNo targets recorded. Patient Instructions Encounter Date Encounter Id Patient Instructions Last Modified By Organization Details Last Modified Time 10/08/2024 [id number] A healthy lifestyle: care instructions [email or web address] Not available 11/19/2024 22:48:16 Reason for Referral None Reported. Results Created Date Observation Date Name Description Value Unit Range Abnormal Flag Note LastModifiedBy Organization Detail LastModifiedTime 04/08/2004/09/2024 LIPID PANEL cholesterol, total 221 mg/dL 100-19 9 above high normal Not Available [facility] ([facility]) [address] [place], [address], 04/09/2024 15:11:12 04/08/2004/09/2024 LIPID PANEL triglyceride s 199 mg/dL 0-149 above high normal Not Available [facility] ([facility]) [address] [place], [address], 04/09/2024 15:11:12 04/08/20 24 04/09/2024 LIPID PANEL HDL cholesterol 54 mg/dL >39 Not Available [facility]) [address] [place], [address], 04/09/2024 15:11:12 04/08/20 24 04/09/2024 LIPID PANEL VLDL cholesterol brian 35 mg/dL 5-40 Not Available [facility] ([facility]) [address] [facility] [place], [address], 04/09/2024 15:11:12 04/08/20 24 04/09/2024 LIPID PANEL LDL chol calc ([facility]) 132 mg/dL 0-99 above high normal Not Available [facility] ([facility]) [address] [facility] [place], [address], 04/09/2024 15:11:12 04/08/20 24 04/09/2024 T4, FREE T4,free(dire ct) 1.06 NG/dL 0.82-1 .77 Not Available [facility] ([facility]) [address] [facility] [place], [address], 04/09/2024 15:11:13 04/08/20 24 04/09/2024 COMP. METAB OLIC PANEL (14) glucose 97 mg/dL 70-99 Not Available [facility] ([facility]) [address] [place], [address], 04/09/2024 15:11:14 04/08/20 24 04/09/2024 COMP. METAB OLIC PANEL (14) BUN 14 mg/dL 6-24 Not Available [facility] ([facility]) [address] [place], [address], 04/09/2024 15:11:14 04/08/20 24 04/09/2024 COMP. METAB OLIC PANEL (14) creatinine 0.81 mg/dL 0.57-1 .00 Not Available [facility] ([facility]) [address] [place], [address], 04/09/2024 15:11:14 04/08/20 24 04/09/2024 COMP. METAB OLIC PANEL (14) eGFR 92 mL/mi n/1.7 3 >59 Not Available [facility] ([facility]) [address] [place], [address], 04/09/2024 15:11:14 04/08/20 24 04/09/2024 COMP. METAB OLIC PANEL (14) BUN/creatini ne ratio 17 9-23 Not Available [facility] ([facility]) [address] [facility] [place], [address], 04/09/2024 15:11:14 04/08/20 24 04/09/2024 COMP. METAB OLIC PANEL (14) sodium 140 mmol/ L 134-14 4 Not Available [facility] ([facility]) [address] [facility] [place], [address], 04/09/2024 15:11:14 04/08/20 24 04/09/2024 COMP. METAB OLIC PANEL (14) potassium 4.4 mmol/ L 3.5-5. 2 Not Available [facility] ([facility]) [address] [facility], [place], [address], 04/09/2024 15:11:14 04/08/20 24 04/09/2024 COMP. METAB OLIC PANEL (14) chloride 102 mmol/ L 96-106 Not Available [facility] ([facility]) [address] [place], [address], 04/09/2024 15:11:14 04/08/20 24 04/09/2024 COMP. METAB OLIC PANEL (14) carbon dioxide, total 23 mmol/ L 20-29 Not Available [facility] ([facility]) [address] [place], [address], 04/09/2024 15:11:14 04/08/20 24 04/09/2024 COMP. METAB OLIC PANEL (14) calcium 9.3 mg/dL 8.7-10 .2 Not Available [facility] ([facility]) [address] [place], [address], 04/09/2024 15:11:14 04/08/20 24 04/09/2024 COMP. METAB OLIC PANEL (14) protein, total 6.8 g/dL 6.0-8. 5 Not Available [facility] ([facility]) [address] [facility], [place], [address], 04/09/2024 15:11:14 04/08/20 24 04/09/2024 COMP. METAB OLIC PANEL (14) albumin 4.6 g/dL 3.9-4. 9 Not Available [facility] ([facility]) [address] [facility], [place], [address], 04/09/2024 15:11:14 04/08/20 24 04/09/2024 COMP. METAB OLIC PANEL (14) globulin, total 2.2 g/dL 1.5-4. 5 Not Available [facility] ([facility]) [address] [facility], [place], [address], 04/09/2024 15:11:14 04/08/20 24 04/09/2024 COMP. METAB OLIC PANEL (14) A/G ratio 2.1 1.2-2. 2 Not Available [facility] ([facility]) [address] [facility], [place], [address], 04/09/2024 15:11:14 04/08/20 24 04/09/2024 COMP. METAB OLIC PANEL (14) bilirubin, total <0.2 mg/dL 0.0-1. 2 Not Available [facility] ([facility]) [address] [facility], [place], [address], 04/09/2024 15:11:14 04/08/20 24 04/09/2024 COMP. METAB OLIC PANEL (14) alkaline phosphatase 57 IU/L 44-121 Not Available [facility] ([facility]) [address] [facility], [place], [address], 04/09/2024 15:11:14 04/08/20 24 04/09/2024 COMP. METAB OLIC PANEL (14) AST (SGOT) 20 IU/L 0-40 Not Available [facility] ([facility]) [address] [facility], [place], [address], 04/09/2024 15:11:14 04/08/20 24 04/09/2024 COMP. METAB OLIC PANEL (14) ALT (SGPT) 14 IU/L 0-32 Not Available [facility] ([facility]) [address] [facility], [place], [address], 04/09/2024 15:11:14 04/08/20 24 04/09/2024 TSH TSH 1.140 uIU/m L 0.450- 4.500 Not Available [facility] ([facility]) [address] [facility], [place], [address], 04/09/2024 15:11:16 04/08/20 24 04/09/2024 CBC WITH DIFFE RENTI AL/PL ATELE T WBC 7.3 x10e3 /uL 3.4-10 .8 Not Available [facility] ([facility]) [address] [facility], [place], [address], 04/09/2024 15:11:17 04/08/20 24 04/09/2024 CBC WITH DIFFE RENTI AL/PL ATELE T RBC 4.73 x10e6 /uL 3.77-5 .28 Not Available [facility] ([facility]) [address] [place], [address], 04/09/2024 15:11:17 04/08/20 24 04/09/2024 CBC WITH DIFFE RENTI AL/PL ATELE T hemoglobin 12.5 g/dL 11.1-1 5.9 Not Available [facility] ([facility]) [address] [facility], [place], [address], 04/09/2024 15:11:17 04/08/20 24 04/09/2024 CBC WITH DIFFE RENTI AL/PL ATELE T hematocrit 39.1 % 34.0-4 6.6 Not Available [facility] ([facility]) [address] [facility], [place], [address], 04/09/2024 15:11:17 04/08/20 24 04/09/2024 CBC WITH DIFFE RENTI AL/PL ATELE T MCV 83 fL 79-97 Not Available [facility] ([facility]) [address] [facility], [place], [address], 04/09/2024 15:11:17 04/08/20 24 04/09/2024 CBC WITH DIFFE RENTI AL/PL ATELE T MCH 26.4 pg 26.6-3 3.0 below low normal Not Available [facility] ([facility]) [address] [facility], [place], [address], 04/09/2024 15:11:17 04/08/20 24 04/09/2024 CBC WITH DIFFE RENTI AL/PL ATELE T MCHC 32.0 g/dL 31.5-3 5.7 Not Available [facility] ([facility]) [address] [facility], [place], [address], 04/09/2024 15:11:17 04/08/20 24 04/09/2024 CBC WITH DIFFE RENTI AL/PL ATELE T RDW 14.8 % 11.7-1 5.4 Not Available [facility] ([facility]) [address] [facility], [place], [address], 04/09/2024 15:11:17 04/08/20 24 04/09/2024 CBC WITH DIFFE RENTI AL/PL ATELE T platelets 289 x10e3 /uL 150-45 0 Not Available [facility] ([facility]) [address] [facility], [place], [address], 04/09/2024 15:11:17 04/08/20 24 04/09/2024 CBC WITH DIFFE RENTI AL/PL ATELE T neutrophils 68 % notest ab. Not Available [facility] ([facility]) [address] [facility], [place], [address], 04/09/2024 15:11:17 04/08/20 24 04/09/2024 CBC WITH DIFFE RENTI AL/PL ATELE T lymphs 24 % notest ab. Not Available [facility] ([facility]) [address] [facility], [place], [address], 04/09/2024 15:11:17 04/08/20 24 04/09/2024 CBC WITH DIFFE RENTI AL/PL ATELE T monocytes 7 % notest ab. Not Available [facility] ([facility]) [address] [facility], [place], [address], 04/09/2024 15:11:17 04/08/20 24 04/09/2024 CBC WITH DIFFE RENTI AL/PL ATELE T eos 1 % notest ab. Not Available [facility] ([facility]) [address] [facility], [place], [address], 04/09/2024 15:11:17 04/08/20 24 04/09/2024 CBC WITH DIFFE RENTI AL/PL ATELE T basos 0 % notest ab. Not Available [facility] ([facility]) [address] [place], [address], 04/09/2024 15:11:17 04/08/20 24 04/09/2024 CBC WITH DIFFE RENTI AL/PL ATELE T neutrophils (absolute) 4.9 x10e3 /uL 1.4-7. 0 Not Available [facility] ([facility]) [address] [facility], [place], [address], 04/09/2024 15:11:17 04/08/20 24 04/09/2024 CBC WITH DIFFE RENTI AL/PL ATELE T lymphs (absolute) 1.8 x10e3 /uL 0.7-3. 1 Not Available [facility] ([facility]) [address] [facility], [place], [address], 04/09/2024 15:11:17 04/08/20 24 04/09/2024 CBC WITH DIFFE RENTI AL/PL ATELE T monocytes(ab solute) 0.5 x10e3 /uL 0.1-0. 9 Not Available [facility] ([facility]) [address] [place], [address], 04/09/2024 15:11:17 04/08/20 24 04/09/2024 CBC WITH DIFFE RENTI AL/PL ATELE T eos (absolute) 0.1 x10e3 /uL 0.0-0. 4 Not Available [facility] ([facility]) [address] [place], [address], 04/09/2024 15:11:17 04/08/20 24 04/09/2024 CBC WITH DIFFE RENTI AL/PL ATELE T baso (absolute) 0.0 x10e3 /uL 0.0-0. 2 Not Available [facility] ([facility]) [address] [place], [address], 04/09/2024 15:11:17 04/08/20 24 04/09/2024 CBC WITH DIFFE RENTI AL/PL ATELE T immature granulocytes 0 % notest ab. Not Available [facility] ([facility]) [address] [place], [address], 04/09/2024 15:11:17 04/08/20 24 04/09/2024 CBC WITH DIFFE RENTI AL/PL ATELE T immature grans (abs) 0.0 x10e3 /uL 0.0-0. 1 Not Available [facility] ([facility]) [address] [place], [address], 04/09/2024 15:11:17 04/08/20 24 04/09/2024 TRIIO DOTHY KENYA E (T3), FREE triiodothyro nine (T3), free 3.1 pg/mL 2.0-4. 4 Not Available [facility] ([facility]) [address] [facility] [place], [address], 04/09/2024 15:11:18 03/16/20 25 03/17/2025 ESR-W ES+CR P sedimentatio n rate-westerg ney 13 mm/HR 0-32 Not Available [facility] ([facility]) [address] [facility] [place], [address], 03/17/2025 11:12:21 03/16/20 25 03/17/2025 ESR-W ES+CR P C-reactive protein, quant <1 mg/L 0-10 Not Available [facility] ([facility]) [address] [facility] [place], [address], 03/17/2025 11:12:21 03/16/20 25 03/17/2025 COMP. METAB OLIC PANEL (14) glucose 92 mg/dL 70-99 Not Available [facility] ([facility]) [address] [place], [address], 03/17/2025 11:12:22 03/16/20 25 03/17/2025 COMP. METAB OLIC PANEL (14) BUN 10 mg/dL 6-24 Not Available [facility] ([facility]) [address] [place], [address], 03/17/2025 11:12:22 03/16/20 25 03/17/2025 COMP. METAB OLIC PANEL (14) creatinine 0.83 mg/dL 0.57-1 .00 Not Available [facility] ([facility]) [address] [place], [address], 03/17/2025 11:12:22 03/16/20 25 03/17/2025 COMP. METAB OLIC PANEL (14) eGFR 89 mL/mi n/1.7 3 >59 Not Available [facility] ([facility]) [address] [place], [address], 03/17/2025 11:12:22 03/16/20 25 03/17/2025 COMP. METAB OLIC PANEL (14) BUN/creatini ne ratio 12 - Not Available [facility] ([facility]) [address] [facility], [place], [address], 03/17/2025 11:12:22 03/16/20 25 03/17/2025 COMP. METAB OLIC PANEL (14) sodium 137 mmol/ L 134-14 4 Not Available [facility] ([facility]) [address] [facility] [place], [address], 03/17/2025 11:12:22 03/16/20 25 03/17/2025 COMP. METAB OLIC PANEL (14) potassium 4.6 mmol/ L 3.5-5. 2 Not Available [facility] ([facility]) [address] [facility], [place], [address], 03/17/2025 11:12:22 03/16/20 25 03/17/2025 COMP. METAB OLIC PANEL (14) chloride 100 mmol/ L 96-106 Not Available [facility] ([facility]) [address] [facility], [place], [address], 03/17/2025 11:12:22 03/16/20 25 03/17/2025 COMP. METAB OLIC PANEL (14) carbon dioxide, total 24 mmol/ L 20-29 Not Available [facility] ([facility]) [address] [facility], [place], [address], 03/17/2025 11:12:22 03/16/20 25 03/17/2025 COMP. METAB OLIC PANEL (14) calcium 9.2 mg/dL 8.7-10 .2 Not Available [facility] ([facility]) [address] [facility] [place], [address], 03/17/2025 11:12:22 03/16/20 25 03/17/2025 COMP. METAB OLIC PANEL (14) protein, total 6.6 g/dL 6.0-8. 5 Not Available [facility] ([facility]) [address] [facility], [place], [address], 03/17/2025 11:12:22 03/16/20 25 03/17/2025 COMP. METAB OLIC PANEL (14) albumin 4.4 g/dL 3.9-4. 9 Not Available [facility] ([facility]) [address] [facility], [place], [address], 03/17/2025 11:12:22 03/16/20 25 03/17/2025 COMP. METAB OLIC PANEL (14) globulin, total 2.2 g/dL 1.5-4. 5 Not Available [facility] ([facility]) [address] [facility], [place], [address], 03/17/2025 11:12:22 03/16/20 25 03/17/2025 COMP. METAB OLIC PANEL (14) bilirubin, total 0.4 mg/dL 0.0-1. 2 Not Available [facility] ([facility]) [address] [facility], [place], [address], 03/17/2025 11:12:22 03/16/20 25 03/17/2025 COMP. METAB OLIC PANEL (14) alkaline phosphatase 57 IU/L 44-121 Not Available [facility] ([facility]) [address] [facility], [place], [address], 03/17/2025 11:12:22 03/16/20 25 03/17/2025 COMP. METAB OLIC PANEL (14) AST (SGOT) 17 IU/L 0-40 Not Available [facility] ([facility]) [address] [facility], [place], [address], 03/17/2025 11:12:22 03/16/20 25 03/17/2025 COMP. METAB OLIC PANEL (14) ALT (SGPT) 10 IU/L 0-32 Not Available [facility] ([facility]) [address] [facility], [place], [address], 03/17/2025 11:12:22 03/16/20 25 03/17/2025 CBC WITH DIFFE RENTI AL/PL ATELE T WBC 7.6 x10e3 /uL 3.4-10 .8 Not Available [facility] ([facility]) [address] [facility], [place], [address], 03/17/2025 11:12:23 03/16/20 25 03/17/2025 CBC WITH DIFFE RENTI AL/PL ATELE T RBC 4.93 x10e6 /uL 3.77-5 .28 Not Available [facility] ([facility]) [address] [facility], [place], [address], 03/17/2025 11:12:23 03/16/20 25 03/17/2025 CBC WITH DIFFE RENTI AL/PL ATELE T hemoglobin 12.9 g/dL 11.1-1 5.9 Not Available [facility] ([facility]) [address] [place], [address], 03/17/2025 11:12:23 03/16/20 25 03/17/2025 CBC WITH DIFFE RENTI AL/PL ATELE T hematocrit 40.9 % 34.0-4 6.6 Not Available [facility] ([facility]) [address] [facility], [place], [address], 03/17/2025 11:12:23 03/16/20 25 03/17/2025 CBC WITH DIFFE RENTI AL/PL ATELE T MCV 83 fL 79-97 Not Available [facility] ([facility]) [address] [facility], [place], [address], 03/17/2025 11:12:23 03/16/20 25 03/17/2025 CBC WITH DIFFE RENTI AL/PL ATELE T MCH 26.2 pg 26.6-3 3.0 below low normal Not Available [facility] ([facility]) [address] [place], [address], 03/17/2025 11:12:23 03/16/20 25 03/17/2025 CBC WITH DIFFE RENTI AL/PL ATELE T MCHC 31.5 g/dL 31.5-3 5.7 Not Available [facility] ([facility]) [address] [place], [address], 03/17/2025 11:12:23 03/16/20 25 03/17/2025 CBC WITH DIFFE RENTI AL/PL ATELE T RDW 16.2 % 11.7-1 5.4 above high normal Not Available [facility] ([facility]) [address] [place], [address], 03/17/2025 11:12:23 03/16/20 25 03/17/2025 CBC WITH DIFFE RENTI AL/PL ATELE T platelets 317 x10e3 /uL 150-45 0 Not Available [facility] ([facility]) [address] [place], [address], 03/17/2025 11:12:23 03/16/20 25 03/17/2025 CBC WITH DIFFE RENTI AL/PL ATELE T neutrophils 71 % notest ab. Not Available [facility] ([facility]) [address] [place], [address], 03/17/2025 11:12:23 03/16/20 25 03/17/2025 CBC WITH DIFFE RENTI AL/PL ATELE T lymphs 22 % notest ab. Not Available [facility] ([facility]) [address] [place], [address], 03/17/2025 11:12:23 03/16/20 25 03/17/2025 CBC WITH DIFFE RENTI AL/PL ATELE T monocytes 5 % notest ab. Not Available [facility] ([facility]) [address] [facility], [place], [address], 03/17/2025 11:12:23 03/16/20 25 03/17/2025 CBC WITH DIFFE RENTI AL/PL ATELE T eos 2 % notest ab. Not Available [facility] ([facility]) [address] [facility], [place], [address], 03/17/2025 11:12:23 03/16/20 25 03/17/2025 CBC WITH DIFFE RENTI AL/PL ATELE T basos 0 % notest ab. Not Available [facility] ([facility]) [address] [facility], [place], [address], 03/17/2025 11:12:23 03/16/20 25 03/17/2025 CBC WITH DIFFE RENTI AL/PL ATELE T neutrophils (absolute) 5.3 x10e3 /uL 1.4-7. 0 Not Available [facility] ([facility]) [address] [place], [address], 03/17/2025 11:12:23 03/16/20 25 03/17/2025 CBC WITH DIFFE RENTI AL/PL ATELE T lymphs (absolute) 1.7 x10e3 /uL 0.7-3. 1 Not Available [facility] ([facility]) [address] [place], [address], 03/17/2025 11:12:23 03/16/20 25 03/17/2025 CBC WITH DIFFE RENTI AL/PL ATELE T monocytes(ab solute) 0.4 x10e3 /uL 0.1-0. 9 Not Available [facility] ([facility]) [address] [facility], [place], [address], 03/17/2025 11:12:23 03/16/20 25 03/17/2025 CBC WITH DIFFE RENTI AL/PL ATELE T eos (absolute) 0.1 x10e3 /uL 0.0-0. 4 Not Available [facility] ([facility]) [address] [place], [address], 03/17/2025 11:12:23 03/16/20 25 03/17/2025 CBC WITH DIFFE RENTI AL/PL ATELE T baso (absolute) 0.0 x10e3 /uL 0.0-0. 2 Not Available [facility] ([facility]) [address] [facility], [place], [address], 03/17/2025 11:12:23 03/16/20 25 03/17/2025 CBC WITH DIFFE RENTI AL/PL ATELE T immature granulocytes 0 % notest ab. Not Available [facility] ([facility]) [address] [facility], [place], [address], 03/17/2025 11:12:23 03/16/20 25 03/17/2025 CBC WITH DIFFE RENTI AL/PL ATELE T immature grans (abs) 0.0 x10e3 /uL 0.0-0. 1 Not Available [facility] ([facility]) [address] [place], [address], 03/17/2025 11:12:23 03/26/20 25 03/23/2025 MRI, brain , w/o contr ast No observ ation record ed. [facility] ([facility]) [address] [facility] [place], [address], 04/01/2025 12:36:45 Result Notes None recorded. Problems Name Problem SNOMED Code Status Onset Date Resolution Date Notes Provider Name and Address Organization Details Recorded Time Overweight [id number] Active 024 Jocelyne Curiel MA [facility], [facility] 16:38:12 Problem Notes None recorded. Procedures Surgical History Date Name Laterality Status Provider Name and Address Organization Details Recorded Time Breast augmentation w/implt completed Alena Sagastume MA [facility] 04/08/2024 15:34:30 Imaging Results None recorded. Procedure Notes None recorded. Medical Equipment None Reported. Allergies No known drug allergies Medications Name Sig Start Date Stop Date Status Note LastModified by Organization Details LastModified Time tretinoin 0.1 % topical cream APPLY TOPICALL Y TO THE AFFECTED AREA EVERY DAY AT BEDTIME active Not Available Not Available No t Available azithromy rukhsana 250 mg tablet TAKE 2 TABLETS (500 MG) BY ORAL ROUTE ONCE DAILY FOR 1 DAY THEN 1 TABLET (250 MG) BY ORAL ROUTE ONCE DAILY FOR 4 DAYS active Not Available Not Available No t Available tizanidin e 4 mg tablet TAKE 1 TABLET BY MOUTH EVERY NIGHT AT BEDTIME NEEDED FOR BACK SPASMS 04/08 completed Not Available Not Available Not Available ondansetr on HCl 4 mg tablet TAKE 1 TABLET BY MOUTH THREE TIMES DAILY NEEDED active Not Available Not Available No t Available spironola ctone 100 mg tablet TAKE 1 TABLET BY MOUTH EVERY DAY 2024 active Not Available Not Available Not Avai lable tretinoin 0.05 % topical cream APPLY TOPICALL Y TO THE AFFECTED AREA EVERY DAY AT BEDTIME 02/18 completed taking the 0.1% now per pt. Not Available Not Available Not Available omeprazol e 40 mg capsule,d elayed release TAKE 1 CAPSULE BY MOUTH EVERY DAY 2024 active Not Available Not Available Not Avai lable ketorolac 10 mg tablet TAKE 1 TABLET BY MOUTH TWICE DAILY NEEDED active Not Available Not Available No t Available clindamyc in 2 % vaginal cream INSERT ONE APPLICAT ORFUL VAGINALL Y AT BEDTIME FOR 7 NIGHTS DIRECTED 04/08 completed Not Available Not Available Not Available progester one micronize d 100 mg capsule TAKE 1 CAPSULE BY MOUTH AT BEDTIME 04/08 completed Not Available Not Available Not Available nitrofura ntoin monohydra te/macroc rystals 100 mg capsule TAKE 1 CAPSULE BY MOUTH EVERY 12 HOURS FOR 5 DAYS 10/08 completed Not Available Not Available Not Available semagluti de (weight loss) 0.5 mg/0.5 mL subcutane ous pen injector Inject 0.5 mg every week by subcutan eous route as needed. active Not Available Not Available No t Available Zepbound 2.5 mg/0.5 mL subcutane ous pen injector inject 2.5mg weekly for 4wks then go to 5mg weekly for 4wks 02/18 completed Pt is taking Semaglut dima Not Available Not Available Not Available Vitals Date Recorded Body height Body mass index (BMI) Body weight Heart rate Oxygen saturation Oxygen saturation in Arterial blood by Pulse oximetry Systolic And Diastolic Provider Name and Address Organization Details Last Updated DateTime 5 170.18 cm 20.9 kg/m2 39135.8 6 g 88 /min 98 % 98 % 110/78 mm[Hg] Jocelyne Curiel MA [facility] 5 15:14:35 Date Recorded Body height Body mass index (BMI) Body weight Oxygen saturation Oxygen saturation in Arterial blood by Pulse oximetry Heart rate Systolic And Diastolic Provider Name and Address Organization Details Last Updated DateTime 4 170.18 cm 22.4 kg/m2 50177.7 1 g 98 % 98 % 75 /min 116/84 mm[Hg] Alena Sagastume MA [facility] 4 15:41:41 Date Recorded Body height Body mass index (BMI) Body weight Heart rate Oxygen saturation Oxygen saturation in Arterial blood by Pulse oximetry Systolic And Diastolic Provider Name and Address Organization Details Last Updated DateTime 4 170.18 cm 21.5 kg/m2 72440.9 5 g 84 /min 99 % 99 % 118/62 mm[Hg] Gladys Martínez MA [facility] 4 14:06:16 Social History Question Answer Notes LastModified by Organizat ion Details LastModified Time Tobacco Smoking Status Never Smoker Alena Sagastume MA [facility] 04/08/2024 15:32:59 Do You Have An Advance Directive? No Information not available 04/08/2024 Are You Blind Or Do You Have Difficulty Seeing? No Information not available 04/08/2024 What Is Your Level Of Caffeine Consumption? Moderate Information not available 04/08/2024 Are You Deaf Or Do You Have Serious Difficulty Hearing? No Information not available 04/08/2024 What Type Of Diet Are You Following? REGULAR Information not available 04/08/2024 Are There Any Guns Present In Your Home? No Information not available 04/08/2024 What Was The Date Of Your Most Recent Tobacco Screening? 02/18/2025 [email or web address] Information not available 02/18/2025 What Is Your Relationship Status? Information not available 04/08/2024 Do You Use Your Seat Belt Or Car Seat Routinely? Yes Information not available 04/08/2024 Do You Have Smoke And Carbon Monoxide Detectors In Your Home? Yes Information not available 04/08/2024 Do You Use Sunscreen Routinely? Yes Information not available 04/08/2024 Has Tobacco Cessation Counseling Been Provided? No Information not available 04/08/2024 Sex: Female Functional Status Question Answer Note LastModified by Organizat ion Details LastModified Time Do you use any illicit or recreational drugs? No Information not available 04/08/2024 Do you or have you ever used any other forms of tobacco or nicotine? No Information not available 04/08/2024 What is your level of alcohol consumption? Occasional Information not available 04/08/2024 Are you currently employed? Yes Information not available 04/08/2024 Are you able to care for yourself? Yes Information not available 04/08/2024 What is your occupation? [employer] Information not available 04/08/2024 What is your exercise level? Occasional Information not available 04/08/2024 Mental Status Question Answer Note LastModified by Organization D etails LastModified Time Do you feel stressed (tense, restless, nervous, or anxious, or unable to sleep at night)? [id number] Information not available 04/08/2024 Family History Relationship Description Onset Age of this Age Resolved Age Notes LastModified by Organization Details LastModified Time Father Dementia [email or web address] Not availa ble 04/08/2024 15:31:54 Father Diabetes mellitus [email or web address] Not available 03/25 15:32:02 Father Heart disease bandersonma Not available 03/25 15:32:10 Father Hypercholest erolemia bandersonma Not available 03/25 15:32:17 Father Hypertensive disorder bandersonma Not available 03/25 15:32:23 Father Myocardial infarction bandersonma Not available 15:32:37 Medical History Condition Response Coronary Artery Disease N Other N High Blood Pressure N Atrial Fibrillation N Kidney or Bladder Problems N Thyroid Problems N GI Problems N Depression N COPD N Blood Clots N Skin Problems N Anemia N Heart Attack (DC) N Anxiety Disorder N Diabetes N Muscle, Joint, or Bone Problems Y Seizures/Epilepsy N Acid Reflux (GERD) Y Cancer N Stroke N Asthma N Allergies N High Cholesterol N Hepatitis N Liver Disease N Headaches Y Heart Failure N Osteoporosis N Gynecological HistoryNo gynecological history recorded. Obstetrics History GPAL:G 0 P 0 0 0 0 Immunizations Vaccine Type Date Status Note Provider Nam e and Address Organization Details Recorded Time Influenza, split virus, quadrivalent, preservative 8 completed [place], [place] - [facility] 02/18/2025 12:35:30 COVID-19, mRNA, LNP-S, PF, 100 mcg/0.5mL dose or 50 mcg/0.25mL dose 1 completed [place] [facility] 02/18/2025 12:35:30 COVID-19, mRNA, LNP-S, PF, 100 mcg/0.5mL dose or 50 mcg/0.25mL dose 1 completed [place] [facility] 02/18/2025 12:35:30 Influenza, split virus, quadrivalent, PF 3 completed [place] [facility] 02/18/2025 12:35:30 Influenza, split virus, trivalent, PF 4 completed [place] [facility] 02/25/2025 14:31:37 Past Encounters Encounter ID Performer Location Encounter Start Date Encounter Closed Date Diagnosis/Indication Diagnosis SNOMED-CT Code Diagnosis ICD10 Code Diagnosis Note [id number] Viktor Marks MD [facility] (Adult Med) [address] [place] [id number] 04/08/2024 15:03:10 04/08/2024 16:42:04 Overweight 430193066 E66.3 Gastroesop hageal reflux disease without esophagitis 109078607 K21.9 [id number] Viktor Marks MD [facility] [place] [address] [place] [id number] 10/08/2024 13:59:39 10/08/2024 14:39:15 Body mass index 20-24 - normal 926796405 Z68.21 Loss of hair 642026102 L 65.9 Gastroesop hageal reflux disease without esophagitis 596281962 K21.9 Hyperlipidemia 57310840 E78.5 [id number] Viktor Marks MD [facility] [employer] [facility] [place] [address] [place] [id number] 02/18/2025 14:24:22 02/18/2025 15:33:11 Headache 13089751 R51.9 Health Concerns Section Related Observation LastModified by Organization Detai ls LastModified Time None Recorded Concern Status LastModified by Organization Details LastModified Time None Recorded Advance Directives Directive N: Payers Insurance Date Sequence Insurance Name Policy Number Policy Proctor Covered Member ID Proctor Member ID Guarantor Name 04/05/2025 1 [facility] Lulu Nichols [id number] Lulu Nichols Notes Date Note Type Note Provider Name and Address Organization Details Recorded Time 04/08/2024 text/html Follow-up on medical problems she has gained about 25 pounds since he has tried multiple [id number] dietary strategies and been unsuccessful. He continues to take her medications for hair loss she takes her medications for GERD which is stable she does still have some intermittent problems with thoracic and lower back pain this has been going on for many many years and has not changed Viktor Marks MD Attn: [address] [place], [address], [facility] 04/09/2024 08:16:14 10/08/2024 text/html GERD is stable s he was using her tretinoin cream without any side effects Viktor Marks MD Attn: [address] [place], [address], [facility] [place] 11/19/2024 22:48:19 02/18/2025 text/html acute onset now pain severe right episcopalian brief no nausea no vomiting been going on now for several weeks to month no slurred speech double vision no clear-cut jaw claudication Viktor Marks MD Attn: [address] [facility], [place], [address], [facility] 02/20/2025 16:37:37 OBGyn Episode No OBEpisode recorded.
== END 2025-06-10 14:14 | disposition home or self-care (01) ==
LOC: ANHIMG 14:15
PROVIDERS: PCP Internal Medicine; Visit Provider Nurse Practitioner Women's Health
DX: Z12.31 Encounter for screening mammogram for malignant neoplasm of breast (principal); Z98.82 Breast implant status; R92.8 Other abnormal and inconclusive findings on diagnostic imaging of breast
CPT/HCPCS: 77063; 77067